=== PATIENT | female | born 1945 | race Two or more races ===

== ENCOUNTER 2017-04-02 12:44 | Emergency (ER) | payer MEDICARE, MEDICAID ==
[~2017-04-02] VITALS: Ht 170.2 cm; Wt 72.6 kg
[2017-04-02 13:17] VITALS: BP 145/73
== END 2017-04-02 13:46 | disposition home or self-care (01) ==
LOC: ER 12:44
DX: B37.3 Candidiasis of vulva and vagina (principal); Z90.49 Acquired absence of other specified parts of digestive tract

== ENCOUNTER 2019-03-12 12:19 | Emergency (ER) | payer MEDICARE, MEDICAID ==
[~2019-03-12] VITALS: Ht 170.2 cm; Wt 72.6 kg
[2019-03-12 12:20] VITALS: BP 142/70
[2019-03-12 13:03] LABS: Basophils # (auto) 0.1 uL; Basophils % (auto) 0.7 % (0.0-2.0); Eosinophils # (auto) 0.8 uL; Eosinophils % (auto) 10.6 % (0.0-7.0); Hematocrit 49.6 % (36.0-46.0); Lymphocytes # (auto) 2.6 uL; Lymphocytes % (auto) 33.9 % (10.0-50.0); Mean Corpuscular Hemoglobin 31.8 pg (28.0-32.0); Mean Corpuscular Hgb Conc. 34.3 g/dL (32.0-36.0); Mean Corpuscular Volume 92.7 fL (80.0-100.0); Monocytes # (auto) 0.7 uL; Monocytes % (auto) 9.4 % (0.0-12.0); Neutrophils # (auto) 3.4 uL; Neutrophils % (auto) 45.4 % (37.0-80.0); Nucleated Red Blood Cells % 0.1 %; Platelet Count (auto) 229 10^3/uL (140-450); Red Blood Cells 5.35 10^6/uL (4.0-5.20); Red Cell Distribution Width 13.8 % (11.8-14.3); White Blood Cell 7.5 10^3/uL (4.4-10.8)
[2019-03-12 13:32] LABS: Alanine Aminotransferase 16 U/L (13-56); Albumin 3.7 g/dL (3.4-5.0); Anion Gap 6 (5-15); Aspartate Aminotransferase 18 U/L (15-37); BUN/Creatinine Ratio 8.9; Blood Urea Nitrogen 7 mg/dL (7-18); Calcium 8.9 mg/dL (8.5-10.1); Carbon Dioxide 27 mmol/L (21-32); Chloride 107 mmol/L (98-107); GFR African American 92 mL/min; GFR Non-African American 76 mL/min; Glucose 92 mg/dL (74-106); Potassium 4.1 mmol/L (3.5-5.1); Sodium 140 mmol/L (136-145)
[2019-03-12 13:37] LABS: Alkaline Phosphatase 83 U/L (45-117); Bilirubin, Total 1.1 mg/dL (0.2-1.0); Total Protein 7.6 g/dL (6.4-8.2)
== END 2019-03-12 14:40 | disposition left against medical advice (07) ==
LOC: ER 12:23
DX: R07.9 Chest pain, unspecified (principal); Z53.21 Procedure and treatment not carried out due to patient leaving prior to being seen by health care provider
CPT/HCPCS: 36415; 71046; 80053; 84484; 85025; 93005

== ENCOUNTER 2023-02-21 13:21 | Emergency (ER) | payer MEDICARE, MEDICAID ==
[~2023-02-21] VITALS: Ht 170.2 cm; Wt 69.9 kg
[2023-02-21 13:40] VITALS: BP 150/81
[2023-02-21] MEDS ORDERED: IBUP800T26 PO (14:17)
== END 2023-02-21 16:09 | disposition home or self-care (01) ==
LOC: ER 13:21
DX: I99.9 Unspecified disorder of circulatory system (principal); M54.42 Lumbago with sciatica, left side; M54.41 Lumbago with sciatica, right side